=== PATIENT | female | born 2000 | race Caucasian/White ===

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

== ENCOUNTER → 2022-08-05 | Outpatient (CLI) | payer OTHER, SELFPAY ==
[2022-08-05 12:08] LABS: Absolute Neutrophil Count 2.2 X10^3/uL (2.0-7.7); Basophil# 0.06 X10^3/uL; Basophil% 1.1 % (0-1); Eosinophil# 0.11 X10^3/uL; Eosinophils% 2.1 % (0-5); Hematocrit 41.5 % (37-47); Hemoglobin 13.9 g/dL (12.0-15.0); Lymphocyte % 47.3 % (19-41); Mean Corp Hgb Conc 33.5 g/dL (32-36); Mean Corpuscular Hgb 30.4 pg (27.0-32.0); Mean Corpuscular Volume 90.8 fL (81-99); Monocyte# 0.39 X10^3/uL; Monocyte% 7.4 % (0-10); NRBC Flagged by Analyzer 0 % (0-5); Neutrophil # 2.22 X10^3/uL (2.7-7.7); Neutrophil % 41.9 % (47-70); Platelet Count 347 K/mm3 (150-450); RBC Distribution Width CV 12.8 % (11.6-14.6); RBC Distribution Width SD 42.4 fl (35.1-43.9); Red Blood Count 4.57 M/mm3 (4.2-5.4); White Blood Count 5.3 K/mm3 (4.4-11.0)
[2022-08-05 12:22] LABS: Erythrocyte Sedimentation Rate 2 mm/hr (0-30)
[2022-08-05 12:57] LABS: ALB/GLOB Ratio 0.9 RATIO (0.9-2.4); AST(SGOT) 14 U/L (15-37); Alanine Aminotransfer ALT/SGPT 14 U/L (13-56); Albumin, Serum 3.1 g/dL (3.2-5.0); Alkaline Phosphatase 62 U/L (45-117); Anion Gap 7 (5-15); BUN 7 mg/dL (7-18); BUN/Creat Ratio 9.4 RATIO (10-20); Calcium,Total 8.9 mg/dL (8.5-10.1); Chloride 108 mmol/L (98-107); Cholesterol 180 mg/dL (200); Creatinine, Serum 0.75 mg/dL (0.55-1.02); EST Glomerular Filtration Rate 105 mL/min (>60); Est Glom Filt Rate - Afr Amer 127 mL/min (>60); Globulin 3.5 g/dL (2.2-4.2); Glucose 83 mg/dL (74-106); High Density Lipoprotein 100 mg/dL; Iron 120 ug/dL (50-170); Protein, Total 6.6 g/dL (6.4-8.2); Sodium Level 139 mmol/L (136-145); Thyroid Stim Hormone (TSH) 1.57 uIU/mL (0.358-3.74); Triglycerides 74 mg/dL; Very Low Density Lipoprotein 15 mg/dL (5-40)
[2022-08-10 13:07] LABS: Beef <0.10 kU/L (Class 0); Corn <0.10 kU/L (Class 0); Egg, Whole <0.10 kU/L (Class 0); Milk (Cow) <0.10 kU/L (Class 0); Peanut <0.10 kU/L (Class 0); Pork <0.10 kU/L (Class 0); Soybean <0.10 kU/L (Class 0); Wheat <0.10 kU/L (Class 0)
[2022-08-12 19:51] LABS: Chocolate <0.10 kU/L (Class 0)
== END | disposition home or self-care (01) ==
PROVIDERS: PCP Family Medicine; Visit Provider Family Medicine
DX: Z00.00 Encounter for general adult medical examination without abnormal findings (principal); R10.9 Unspecified abdominal pain
CPT/HCPCS: 36415; 80053; 80061; 82746; 83540; 84443; 85025; 85652; 86003; 86005

== ENCOUNTER → 2022-08-08 | Outpatient (CLI) | payer OTHER, SELFPAY ==
--- NOTE | 2022-08-08 07:12 | US_ITS ---
EXAM: US ABDOMEN LIMITED, RIGHT UPPER QUADRANT CLINICAL INDICATION: Abd pain TECHNIQUE: Real-time ultrasound of the right upper quadrant with image documentation. This report was created using [id number] report generation technology. COMPARISON: None. FINDINGS: LIVER: Normal. There is normal echotexture. No focal hepatic lesion. No intrahepatic biliary ductal dilation. GALLBLADDER: Normal. No shadowing gallstone. No gallbladder wall thickening is demonstrated. No pericholecystic fluid. Negative sonographic Farfan''s sign. COMMON BILE DUCT: Unremarkable as visualized. The proximal common bile duct is within normal limits for the patient''s age. PANCREAS: Unremarkable as visualized. No focal abnormality is demonstrated in the pancreas. No pancreatic ductal dilatation. RIGHT KIDNEY: Normal. There is no hydronephrosis. No shadowing calculus. No focal lesion or perinephric collection is demonstrated. US/Abdomen Limited IMPRESSION: Normal right upper quadrant ultrasound. Electronically Signed: Prudencio Baez MD at 12:30 EST ,
== END | disposition home or self-care (01) ==
LOC: US 07:11
PROVIDERS: PCP Family Medicine; Referring Provider Family Medicine; Visit Provider Family Medicine
DX: R10.9 Unspecified abdominal pain (principal)
CPT/HCPCS: 76705

== ENCOUNTER 2023-04-15 20:19 | Emergency (ER) | payer OTHER, SELFPAY ==
[2023-04-15 20:20] VITALS: BP 127/87; PULSE 82; RESP 16; TEMP 36.6; O2SAT 97; BMI 29.3
--- NOTE | 2023-04-15 21:22 | CT_ITS ---
STUDY: CT ABDOMEN AND PELVIS WITH CONTRAST REASON FOR EXAM: Female, 22 years old. abd pain, vomiting, diarrhea RADIATION DOSAGE (If Supplied By Facility): CTDIvol = ( 12.88 ) mGy, DLP = ( 796.03 ) mGycm TECHNIQUE: Transaxial images were obtained from the dome of the diaphragm to the symphysis pubis without oral contrast. IV 100mL Isovue-370 was administered. Sagittal and coronal images were reconstructed. Individualized dose optimization techniques were used for this CT. COMPARISON: None. FINDINGS: The visualized lung bases are unremarkable. The visualized portions of the heart are within normal limits. Normal liver. Normal gallbladder and extrahepatic biliary system. Normal spleen. Normal pancreas. Normal bilateral adrenal glands. Normal right kidney. Normal left kidney. Normal visualized stomach. Normal small intestine. Normal colon. The appendix is visualized and appears normal. Normal abdominal aorta. Normal inferior vena cava. Normal retroperitoneum. Normal urinary bladder. Normal abdominal wall. Normal osseous structures. CT/Abdomen/Pelvis W IV Cont ONLY IMPRESSION: Normal enhanced CT of the abdomen and pelvis. Electronically Signed: Lucian Estevez MD at 23:38 EDT ,
[2023-04-15] MEDS: 0.9% Normal Saline (1000mL) 1,000 ML 1000 ML IV (21:53)
[2023-04-15] MEDS: proMETHazine 25 MG/ML Syringe 12.5 MG IM (22:01)
[2023-04-15] MEDS: Pantoprazole Sodium 40 MG in 0.9% Normal Saline (100mL MB+) 100 ML 330 MG IV (22:01)
[2023-04-15 22:06] LABS: Absolute Lymphocyte Count 2.42 X10^3/uL (0.83-4.51); Absolute Neutrophil Count 2.6 X10^3/uL (2.0-7.7); Basophil# 0.04 X10^3/uL; Basophil% 0.7 % (0-1); Eosinophil# 0.09 X10^3/uL; Eosinophils% 1.5 % (0-5); Hematocrit 41.7 % (37-47); Lymphocyte # 2.42 X10^3/ul (0.83-4.51); Lymphocyte % 41.2 % (19-41); Mean Corp Hgb Conc 33.6 g/dL (32-36); Mean Corpuscular Hgb 29.5 pg (27.0-32.0); Mean Platelet Vol. 9.8 fl (6.2-12.0); Monocyte# 0.76 X10^3/uL; Monocyte% 12.9 % (0-10); NRBC Flagged by Analyzer 0 % (0-5); Neutrophil # 2.56 X10^3/uL (2.7-7.7); Neutrophil % 43.5 % (47-70); Platelet Count 328 K/mm3 (150-450); RBC Distribution Width CV 11.9 % (11.6-14.6); Red Blood Count 4.74 M/mm3 (4.2-5.4); White Blood Count 5.9 K/mm3 (4.4-11.0)
[2023-04-15 22:19] LABS: Internal QC Validated? YES +Cl - CLEAR BKGD; Pregnancy, Serum, hCG Quali. NEGATIVE Negative
[2023-04-15 22:26] LABS: AST(SGOT) 18 U/L (15-37); Alanine Aminotransfer ALT/SGPT 46 U/L (13-56); Albumin, Serum 3.3 g/dL (3.2-5.0); Alkaline Phosphatase 67 U/L (45-117); Anion Gap 5 (5-15); BUN 5 mg/dL (7-18); BUN/Creat Ratio 6.8 RATIO (10-20); Bilirubin, Direct 0.14 mg/dL (0.00-0.30); Chloride 107 mmol/L (98-107); Creatinine, Serum 0.73 mg/dL (0.55-1.02); EST Glomerular Filtration Rate 107 mL/min (>60); Est Glom Filt Rate - Afr Amer 130 mL/min (>60); Estimated Creatinine Clearance 119.54 ml/min; Globulin 3.4 g/dL (2.2-4.2); Glucose 89 mg/dL (74-106); Lipase 37 U/L (13-75); Potassium 3.5 mmol/L (3.5-5.1); Protein, Total 6.7 g/dL (6.4-8.2); Sodium Level 139 mmol/L (136-145)
[2023-04-15 22:29] LABS: Mucous, Urine 0 SEEN /hpf (<or=2+); Red Blood Cells-Urine 0 SEEN /hpf (0-5); Squamous Epithelial Cells - UA 0 SEEN /hpf (5-10); White Blood Cells 0 SEEN /hpf (0-5)
--- NOTE | 2023-04-15 22:29 | EDS_ITS ---
HPI History of Present Illness Chief Complaint: Nausea/Vomiting/Diarrhea Informant: patient and family Onset/Context/Timing Onset: Days (5 days) Context: Gradual Onset Narrative Narrative: Patient presents with 5-day history of nausea, vomiting, and diarrhea. She complains of some diffuse abdominal cramping, but does have intermittent sharper pain in the lower abdomen. No fever has been noted. Patient has been taking Zofran and omeprazole at home without improvement. [facility] Medical History Asthma Back pain Dysmenorrhea Dysmenorrhea Facet syndrome, lumbar HNP (herniated nucleus pulposus), lumbar Influenza A Low iron Wears contact lenses Home Medications albuterol sulfate 90 mcg/actuation aerosol inhaler 1 - 2 puff inhalation Q4H PRN PRN Wheezing ##1 12/22/14 [Rx Last Taken Unknown] montelukast 10 mg tablet 10 mg PO DAILY 12/22/14 [History Last Taken 12/21/14] fluticasone propionate 50 mcg/actuation nasal spray,suspension (Flonase Allergy Relief) 1 spray intranasal DAILY 02/15/20 [History Last Taken Unknown] ferrous sulfate 325 mg (65 mg iron) tablet (iron) 325 mg PO DAILY 04/18/21 [History Last Taken Unknown] drospirenone 3 mg-ethinyl estradiol 0.03 mg tablet (Ocella) 1 tab PO DAILY active pills only for continuous cycling #84 tabs 06/04/22 [Rx Last Taken Unknown] omeprazole 40 mg capsule,delayed release 40 mg PO DAILY PRN 04/15/23 [History Last Taken Unknown] pantoprazole 20 mg tablet,delayed release (Protonix) 40 mg (2 x 20 mg) PO DAILY #14 tabs 04/15/23 [Rx Last Taken Unknown] promethazine 25 mg tablet 25 mg PO TID PRN nausea and vomiting #14 tabs 04/15/23 [Rx Last Taken Unknown] Allergy/AdvReac Type Severity Reaction Status Date / Time amoxicillin [From Augmentin] AdvReac Mild Vomiting Verified 04/15/23 20:20 clavulanic acid AdvReac Mild Vomiting Verified 04/15/23 20:20 [From Augmentin] Family History Grandmother Cancer Aunt Cancer Thyroid Surgical History [place] teeth extracted Social History current occupational status: student current occupation: [employer] Smoking Status: Never smoker alcohol intake: never substance use type: does not use frequency: 3-4 times per week ROS ROS ED Constitutional Constitutional ED: Denies chills or fever(s) Eyes Eyes: Denies discharge from eye(s) ENT ENT ED: Denies discharge from eye(s), rhinorrhea or sore throat Cardiovascular Cardiovascular: Denies chest pain or palpitations Respiratory/Chest Respiratory/Chest: Denies cough or dyspnea Gastrointestinal Gastrointestinal: Reports abdominal pain, diarrhea, nausea and vomiting Genitourinary Genitourinary ED: Denies dysuria Musculoskeletal Musculoskeletal: Denies back pain or extremity pain Integumentary Denies Abrasions or rash Neurologic Neurologic: Denies headache(s) or weakness Allergic/Immunologic Allergic/Immunologic ED: Denies lip swelling or urticaria EXAM Physical Exam Const Vital Signs: 04/15/23 20:20 Temperature 97.8 F Temperature Source Temporal Pulse Rate 82 Respiratory Rate 16 Blood Pressure 127/87 H Blood Pressure Mean 100 Pulse Ox 97 Positive well nourished and well developed General Appearance ED: well developed HEENT Reports normocephalic and head/scalp atraumatic Eyes PERRL and EOMs intact bilaterally Neck supple Chest Wall inspection of chest normal and palpation of chest normal Resp normal respiratory effort and clear to auscultation bilaterally Cardio regular rate and regular rhythm GI GI Narrative: Abdomen soft with hypoactive but present bowel sounds. Mild tenderness in the inferior aspect of the left lower quadrant. No guarding or rebound. Palpation: soft Extremity normal to inspection Neuro oriented x3 and no sensory deficits noted Sensorium / Orientation: alert Motor Exam: strength 5/5 throughout Psych mental status grossly normal Skin no rashes or lesions noted MDM MDM MDM Narrative Medical decision making narrative: IV line established. Patient given Protonix and Phenergan. Labwork obtained to evaluate for leukocytosis, anemia, and electrolyte derangement. CT scan of the abdomen pelvis with IV contrast obtained to evaluate for any bowel abnormalities, colitis. Lab Data Attestation: I reviewed the patient's lab results. Labs: Laboratory Results - last 24 hr 04/15/23 21:50 WBC 5.9 RBC 4.74 Hgb 14.0 Hct 41.7 MCV 88.0 MCH 29.5 MCHC 33.6 RDW Std Deviation 39.0 RDW Coeff of Mandy 11.9 Plt Count 328 MPV 9.8 Immature Gran % (Auto) 0.200 Neut % (Auto) 43.5 L Lymph % (Auto) 41.2 H [place] % (Auto) 12.9 H Eos % (Auto) 1.5 Baso % (Auto) 0.7 Absolute Neuts (auto) 2.6 Absolute Lymphs (auto) 2.42 Nucleated RBC % 0 Sodium 139 Potassium 3.5 Chloride 107 Carbon Dioxide 27.0 Anion Gap 5 BUN 5 L Creatinine 0.73 Estim Creat Clear Calc 119.54 Est GFR (MDRD) Af Amer 130 Est GFR (MDRD) Non-Af 107 BUN/Creatinine Ratio 6.8 L Glucose 89 Calcium 9.0 Total Bilirubin 0.40 Direct Bilirubin 0.14 AST 18 ALT 46 Alkaline Phosphatase 67 Total Protein 6.7 Albumin 3.3 Globulin 3.4 Lipase 37 Serum , Qual NEGATIVE Urine Color Yellow Urine Clarity Clear Urine pH 7.0 Ur Specific [place] 1.010 Urine Protein Negative Urine Glucose (UA) Normal Urine Ketones Negative Urine Occult Blood Negative Urine Nitrite Negative Urine Bilirubin Negative Urine Urobilinogen Normal Ur Leukocyte Esterase Negative Urine RBC 0 SEEN Urine WBC 0 SEEN Ur Squamous Epith Cells 0 SEEN Urine Bacteria 1+ Urine Mucus 0 SEEN Radiography Diagnostic Testing: Clinical Impression(s) from Imaging Studies Abdomen/Pelvis CT 04/15/23 21:22 IMPRESSION: Normal enhanced CT of the abdomen and pelvis. Electronically Signed: Lucian Estevez MD at 23:38 EDT , Treatment and Re-Evaluation :: CBC was normal white count of 5.9 with a hemoglobin of 14.0. Chemistry studies are unremarkable with normal renal function. Glucose is 89. test is negative. LFTs are normal. Lipase is normal at 37. CT scan of the abdomen pelvis with IV contrast per radiology reveals no acute findings. On repeat evaluation patient does feel improved after Protonix and Phenergan. I will write her prescription for these. She will continue supportive care. Discharge Plan Triage Chief Complaint: Nausea/Vomiting/Diarrhea ED Provider: Betsy Durand Dx/Rx/DC Orders Clinical Impression: Viral gastroenteritis Instructions: ED Gastroenteritis, Viral (Adult) Prescriptions: New promethazine 25 mg tablet 25 mg PO TID PRN (Reason: nausea and vomiting) Qty: 14 0RF pantoprazole [Protonix] 20 mg tablet,delayed release (DR/EC) 40 mg PO DAILY Qty: 14 0RF No Action fluticasone propionate [Flonase Allergy Relief] 50 mcg/actuation spray,suspension 1 spray INTRANASAL DAILY Hold Instructions: not taking Rx Instructions: administer into each nostril ferrous sulfate [iron] 325 mg (65 mg iron) tablet 325 mg PO DAILY drospirenone-ethinyl estradiol [Ocella] 3-0.03 mg tablet 1 tab PO DAILY Qty: 84 4RF montelukast 10 MG tablet 10 mg PO DAILY albuterol sulfate 1 INHALER inhaler 1 - 2 puff inhalation Q4H PRN PRN (Reason: Wheezing) Qty: 1 0RF omeprazole 40 mg capsule,delayed release(DR/EC) 40 mg PO DAILY PRN Primary Care Provider: Bimal Reddy Referrals: Bimal Reddy MD [Primary Care Provider] - 1 Week if not improving Disposition Disposition: Home, Self Care
[2023-04-15 22:30] LABS: Color, Urine Yellow (Yellow); Glucose, Dipstick Normal (Normal); Ketone-Dipstick Negative (Negative); Leukocyte Esterase-Dipstick Negative /ul (Negative); Nitrite-Dipstick Negative (Negative); Occult Blood-Urine Negative /ul (Negative); Protein-Dipstick Negative (Negative); Urine Bilirubin Dipstick Negative (Negative); Urine Clarity Clear (Clear); Urine Urobilinogen Normal (Normal)
[2023-04-15 22:38] LABS: Bacteria 1+ /hpf (None Seen)
[2023-04-15] MEDS: 0.9% Normal Saline (1000mL) 1,000 ML 150 ML IV (23:26)
[2023-04-16 00:11] VITALS: BP 120/81; PULSE 78; RESP 16; O2SAT 98
== END 2023-04-16 00:16 | disposition home or self-care (01) ==
PROVIDERS: Emergency Provider Emergency Medicine; PCP Family Medicine; Visit Provider Emergency Medicine
DX: A08.4 Viral intestinal infection, unspecified (principal); Z23 Encounter for immunization
CPT/HCPCS: 74177; 80048; 80076; 81001; 83690; 84703; 85025; 90471; 96365; 96372; 99283; J7030; Q9967; A4216

== ENCOUNTER → 2024-02-12 | Outpatient (CLI) | payer OTHER, SELFPAY ==
[2024-02-17 11:59] LABS: Chlamydia By Nucleic Acid AMP Negative (Negative); Gonococcus By Nucleic Acid AMP Negative (Negative)
[2024-02-17 12:19] LABS: HPV Reflexed? NOT INDICATED
== END | disposition home or self-care (01) ==
PROVIDERS: PCP Family Medicine; Referring Provider Advanced Practice Midwife; Visit Provider Advanced Practice Midwife
DX: O99.210 Obesity complicating pregnancy, unspecified trimester (principal); Z3A.00 Weeks of gestation of pregnancy not specified; Z12.4 Encounter for screening for malignant neoplasm of cervix
CPT/HCPCS: 87086; 87088; 87491; 87591; 88175; G0145

== ENCOUNTER → 2024-03-09 | Outpatient (CLI) | payer OTHER, SELFPAY ==
[2024-03-09 14:51] LABS: Absolute Lymphocyte Count 2.38 X10^3/uL (0.83-4.51); Absolute Neutrophil Count 4.9 X10^3/uL (2.0-7.7); Basophil# 0.05 X10^3/uL; Basophil% 0.6 % (0-1); Eosinophil# 0.12 X10^3/uL; Eosinophils% 1.5 % (0-5); Hematocrit 37.8 % (37-47); Hemoglobin 12.6 g/dL (12.0-15.0); Lymphocyte # 2.38 X10^3/ul (0.83-4.51); Lymphocyte % 30.2 % (19-41); Mean Corp Hgb Conc 33.3 g/dL (32-36); Mean Corpuscular Hgb 30.1 pg (27.0-32.0); Mean Corpuscular Volume 90.4 fL (81-99); Monocyte# 0.46 X10^3/uL; Monocyte% 5.8 % (0-10); NRBC Flagged by Analyzer 0 % (0-5); Neutrophil # 4.85 X10^3/uL (2.7-7.7); Neutrophil % 61.5 % (47-70); Platelet Count 307 K/mm3 (150-450); RBC Distribution Width CV 12.9 % (11.6-14.6); RBC Distribution Width SD 42.5 fl (35.1-43.9); Red Blood Count 4.18 M/mm3 (4.2-5.4); White Blood Count 7.9 K/mm3 (4.4-11.0)
[2024-03-09 15:12] LABS: Hemoglobin A1c 4.7 % (3.8-5.6)
[2024-03-09 16:03] LABS: HIV - WCH Non-Reactive (Nonreactive); Hepatitis B Surface Antigen Non-Reactive (Nonreactive); Hepatitis C Antibody Non-Reactive (Nonreactive); Rubella IgG Reactive (Nonreactive); Syphilis Antibodies Non-reactive
== END | disposition home or self-care (01) ==
LOC: LAB 14:01
PROVIDERS: PCP Family Medicine; Referring Provider Advanced Practice Midwife; Visit Provider Advanced Practice Midwife
DX: O09.90 Supervision of high risk pregnancy, unspecified, unspecified trimester (principal); Z3A.00 Weeks of gestation of pregnancy not specified
CPT/HCPCS: 36415; 83036; 85025; 86703; 86762; 86780; 86803; 86850; 86900; 86901; 87340

== ENCOUNTER → 2024-06-18 | Outpatient (CLI) | payer OTHER, SELFPAY ==
[2024-06-18 16:28] LABS: Absolute Lymphocyte Count 2.01 X10^3/uL (0.83-4.51); Absolute Neutrophil Count 6.4 X10^3/uL (2.0-7.7); Basophil# 0.05 X10^3/uL; Basophil% 0.5 % (0-1); Eosinophil# 0.11 X10^3/uL; Eosinophils% 1.2 % (0-5); Hematocrit 36.3 % (37-47); Hemoglobin 12.1 g/dL (12.0-15.0); Lymphocyte # 2.01 X10^3/ul (0.83-4.51); Lymphocyte % 21.8 % (19-41); Mean Corp Hgb Conc 33.3 g/dL (32-36); Mean Corpuscular Hgb 30.9 pg (27.0-32.0); Mean Corpuscular Volume 92.8 fL (81-99); Mean Platelet Vol. 10.6 fl (6.2-12.0); Monocyte# 0.61 X10^3/uL; Monocyte% 6.6 % (0-10); NRBC Flagged by Analyzer 0 % (0-5); Neutrophil # 6.41 X10^3/uL (2.7-7.7); Neutrophil % 69.5 % (47-70); Platelet Count 291 K/mm3 (150-450); RBC Distribution Width SD 43.6 fl (35.1-43.9); Red Blood Count 3.91 M/mm3 (4.2-5.4); White Blood Count 9.2 K/mm3 (4.4-11.0)
[2024-06-18 16:39] LABS: Glucose Challenge Gest 1H 50g 114 mg/dL (70-140)
[2024-06-21 19:23] LABS: HIV - WCH Non-Reactive (Nonreactive); Syphilis Antibodies Non-reactive
== END | disposition home or self-care (01) ==
LOC: BWCLAB 14:12
PROVIDERS: PCP Family Medicine; Referring Provider Advanced Practice Midwife; Visit Provider Advanced Practice Midwife
DX: O09.92 Supervision of high risk pregnancy, unspecified, second trimester (principal); Z3A.00 Weeks of gestation of pregnancy not specified; Z13.1 Encounter for screening for diabetes mellitus
CPT/HCPCS: 36415; 82950; 85025; 86703; 86780

== ENCOUNTER 2024-07-22 05:22 | Outpatient (CLI) | payer OTHER, SELFPAY ==
[2024-07-22 05:46] VITALS: BP 107/58; PULSE 85; RESP 18; TEMP 36.6; O2SAT 100
[2024-07-22 05:49] VITALS: BMI 34.4
[2024-07-22] MEDS: Dextrose 5%-Lactated Ringers 1,000 ML 999 ML IV (07:26)
[2024-07-22] MEDS: Ondansetron 4 MG/2 ML Vial IV (07:27)
[2024-07-22 07:31] VITALS: BP 99/57; PULSE 71; RESP 16; TEMP 36.5
[2024-07-22] MEDS: 0.9% Saline Lock 10 ML Syringe IV (08:40)
--- NOTE | 2024-07-22 09:19 | OB.TRI.PN_ITS ---
Progress Notes Date of Service: 07/22/24 Progress Note: Patient presents for triage evaluation secondary to diarrhea, dec fm FHT: 140 Moderate variability reactive no decelerations category I tracing [place]: no ergular Contractions Assessment and plan: diarrha 33 week tolerating po now will get stool culture as OP Reactive NST, reassuring maternal and status patient discharged to home to follow-up as bindu. See problem list details for additional plan information. Charges/Coding Procedures Urinary/Genital [id number]: [id number] non-stress test Interp Assessment & Plan (1) Decreased movements in third trimester: (2) Diarrhea: (3) : QUALIFIERS: Weeks of gestation: 30 weeks Qualified Code(s): Z3A.30 - 30 weeks gestation of COMMENT: LR NIPT, carrier and afp declined. nl anatomy (4) Supervision of high-risk : QUALIFIERS: Trimester: second trimester Qualified Code(s): O09.92 - Supervision of high risk , unspecified, second trimester COMMENT: HADLEY, , MARVA 09/20/24, boy name secret Jatinder
== END 2024-07-22 10:15 | disposition home or self-care (01) ==
LOC: WPOUT 05:26 → WP 05:26
PROVIDERS: PCP Family Medicine; Referring Provider Obstetrics & Gynecology; Visit Provider Obstetrics & Gynecology
DX: O99.891 Other specified diseases and conditions complicating pregnancy (principal); R19.7 Diarrhea, unspecified; O09.93 Supervision of high risk pregnancy, unspecified, third trimester; O36.8130 Decreased fetal movements, third trimester, not applicable or unspecified; Z3A.31 31 weeks gestation of pregnancy
CPT/HCPCS: 96374; 96361; 36415; 59025; 59050; 99221; A4216; G0378; J2405

== ENCOUNTER → 2024-08-27 | Outpatient (CLI) | payer OTHER, SELFPAY | END | disposition home or self-care (01) | LOC: LABSPEC 16:30 | PROVIDERS: PCP Family Medicine; Referring Provider Advanced Practice Midwife; Visit Provider Advanced Practice Midwife | DX: O09.92 Supervision of high risk pregnancy, unspecified, second trimester (principal); Z3A.00 Weeks of gestation of pregnancy not specified | CPT/HCPCS: 87081 ==

== ENCOUNTER → 2024-09-10 | Outpatient (CLI) | payer OTHER, SELFPAY ==
--- NOTE | 2024-09-10 17:46 | US_ITS ---
PROCEDURE: OB LIMITED WITH BIOMETRICS REASON FOR EXAM: growth. COMPARISON: None. FINDINGS Number: 1 Position: Vertex Placental Position: Placental Abnormalities: None. DIMENSIONS: Biparietal Diameter: 9.4 cm: 38 weeks and 1 day: 66 percentile/ Head Circumference: 33.6 cm: 38 weeks and 4 days: 33rd percentile/ Abdominal Circumference: Abdominal circumference: 32.1 cm: 36 weeks and 0 days: 9 percentile/ Femur Length: 7 cm: 35 weeks and 4 days: 3rd percentile/ ESTIMATED WEIGHT: 2929 g plus/-439 g. ESTIMATED WEIGHT PERCENTILE (24+ weeks): 17 percentile ESTIMATED GESTATIONAL AGE: Baseline: 38 weeks and 4 days By Ultrasound: 37 weeks and 1 day ESTIMATED DATE OF DELIVERY: Baseline: September 20, 2024 By Ultrasound: September 30, 2024 BIOPHYSICAL ASSESSMENT: Amniotic Fluid Volume: Subjectively normal. Amniotic Fluid Index: 10.6 (8-24 cm normal range) Cardiac Motion: 135 beats per minutes (average) Trunk and Limb Motion: Present. MATERNAL ANATOMY: Adnexa: Neither maternal ovary is successfully identified. US/OB Limited With Biometrics IMPRESSION: Single live intrauterine gestation with a mean gestational age of 37 weeks and 1 day. Reading Location: [place] [id number]
== END | disposition home or self-care (01) ==
LOC: US 17:45
PROVIDERS: PCP Family Medicine; Referring Provider Obstetrics & Gynecology; Visit Provider Obstetrics & Gynecology
DX: O99.212 Obesity complicating pregnancy, second trimester (principal); Z3A.00 Weeks of gestation of pregnancy not specified
CPT/HCPCS: 76816

== ENCOUNTER 2024-09-13 19:30 | Inpatient (IN) | payer OTHER, SELFPAY ==
--- NOTE | 2024-09-13 20:18 | HP.PCM.OB_ITS ---
HPI - General General Date of Admission: 09/13/24 Date of Service: 09/13/24 HPI Narrative ARIANA SINGH, is a 23 F 39.0 weeks who presents to unit for IOL for IUGR by US. AC 9th% over all 17%. plan cytotec. Maternal Data Information MARVA Calculator Estimated Delivery Date Method Current WG Current Estimate 09/20/24 LMP (Certain) 39w 0d Other Estimates 09/25/24 Ultrasound #1 38w 2d Final MARVA: 09/20/24 Final MARVA Source: US >20 weeks Gestational age: 39.0 PFSH PFS Medical History Dysmenorrhea Seasonal allergies Wears contact lenses Low iron Back pain Facet syndrome, lumbar HNP (herniated nucleus pulposus), lumbar Dysmenorrhea Asthma Home Medications ?Medication ?Instructions ?Recorded ?Last Taken ?Type loratadine 10 mg tablet (Claritin) 10 mg PO PRN Unknown History montelukast 10 mg tablet 10 mg PO QHS 07/22/24 21:00 History (Singulair) vit no.95-ferrous 1 tab PO DAILY 07/22/24 21:00 History fumarate 28 mg-folic acid 800 mcg tablet () Allergy/AdvReac Type Severity Reaction Status Date / Time amoxicillin (From Augmentin) AdvReac Mild Vomiting Verified 09/07/24 15:20 clavulanic acid (From AdvReac Mild Vomiting Verified 09/07/24 15:20 Augmentin) Family History Grandmother Cancer Aunt Cancer Thyroid Brother Congenital heart defect Hole in heart resolved w/o intervention Surgical History [place] teeth extracted Social History adopted: No household members: spouse and family current occupational status: employed current occupation: [employer] pets and animals: Yes (Avoid litterbox) pets and animals: cat(s) and dog(s) history of recent travel: Yes ([place]) out of state: Yes out of country: Yes sexually active: Yes Smoking Status: Never smoker alcohol intake: never substance use type: does not use well-balanced diet: daily or most days caffeine: No eating out: 1-3 times/week during the past year weight has: remained stable what type of physical activity do you participate in: walking frequency: 1-2 times per week duration: 15-30 minutes/day kimberly/latter day: Gnosticism seatbelt use: always do you feel safe at home: Yes additional social history: Jatinder History 1 Elective abortions Hx Para 0 Spontaneous abortions Hx # Term Pregnancies Ectopic pregnancies Hx # Pregnancies Multiple births # of living children Visit Details Expected Delivery Route/Plan Labor Preferences- CB/BF classes: encouraged labor support person: Jatinder labor intervention preferences: [] pain management options preferred: [] cut cord/dad catch: yes : yes PP control planned: discussed discussed possible routes of delivery and associated risks: [] special requests: [] Plans Covid status: [] Flu vaccine: received at work Tdap vaccine: declined Rhogam: NA LARC form signed: yes movement and labor precautions reviewed. Problem list reviewed and updated with the most current plan of care details and appropriate orders placed. Relevant counseling for the gestational age provided. Continue routine care and follow up unless otherwise noted in visit notes/problem list details OB Flowsheet Initial Weight: Not Recorded Date -?-?-?-?-?-?-?-?-?-?-?-?- EGA Weight BP Urine Prot -?-?-?-?-?-?-?-?-?-?-?-?- Glucose FHR FuHt Pres Dilation -?-?-?-?-?-?-?-?-?-?-?-?- Effaced St Visit Note 02/12/24 -?-?-?-?-?-?-?-?-?-?-?-?- 8w 3d 195 lb 114/71 -?-?-?-?-?-?-?-?-?-?-?-?- 159 -?-?-?-?-?-?-?-?-?-?-?-?- KW- CRL 1.20 cm. CRL reports OOR. Rescan in 2 weeks. Accepts NIPT 02/26/24 -?-?-?-?-?-?-?-?-?-?-?-?- 10w 3d 195 lb 111/77 -?-?-?-?-?-?-?-?-?-?-?-?- 157 -?-?-?-?-?-?-?-?-?-?-?-?- KW-CRL 2.90cm, c ons with 9.5 week. doing well. Yolandaan sent 03/23/24 -?-?-?-?-?-?-?-?-?-?-?-?- 14w 1d 198 lb 6 oz 115/75 Nega tive -?-?-?-?-?-?-?-?-?-?-?-?- Negative 145 -?-?-?-?-?-?-?-?-?-?-?-?- JV- still having nausea. patient prefers [facility] ultrasound for anatomy. discussed will cost out of pocket due to having merritain ins. 04/15/24 -?-?-?-?-?-?-?-?-?-?-?-?- 17w 3d 201 lb 94/65 Negative -?-?-?-?-?-?-?-?-?-?-?-?- Negative 139 -?-?-?-?-?-?-?-?-?-?-?-?- MH-work in for h dean. Only has it when has to get up early for work and will last half of 12 hr shift. Nausea no longer problematic. Just has difficulty concentrating. Caffeine and tylenol not helpful. Note off work rest of today, phenergan Rx and discussed take night prior to working. Good Fm. No VB 04/23/24 -?-?-?-?-?-?-?-?-?-?-?-?- 18w 4d 203 lb 6 oz 100/68 Nega tive -?-?-?-?-?-?-?-?-?-?-?-?- Negative 150 -?-?-?-?-?-?-?-?-?-?-?-?- SM- no vb lof go od fm no regular ctx discussed allergies and MAE 05/20/24 -?-?-?-?-?-?-?-?-?-?-?-?- 22w 3d 210 lb 2 oz 96/62 Nega tive -?-?-?-?-?-?-?-?-?-?-?-?- Negative 148 -?-?-?-?-?-?-?-?-?-?-?-?- MH-No Vb, LOF. G ood FM. Denies concerns 06/18/24 -?-?-?-?-?-?-?-?-?-?-?-?- 26w 4d 214 lb 113/76 Negative -?-?-?-?-?-?-?-?-?-?-?-?- Negative 150 26 -?-?-?--?-?-?-?-?-?-?-?-?- KW- no vb.lof.ct x. good fm. had labs today. 07/01/24 -?-?-?-?-?-?-?-?-?-?-?-?- 28w 3d 220 lb 109/69 Negative -?-?-?-?-?-?-?-?-?-?-?-?- Negative 150 28 -?-?-?-?-?-?-?-?-?-?-?-?- SM- no vb lof go od fm no reuglar ctx 07/16/24 -?-?-?-?-?-?-?-?-?-?-?-?- 30w 4d 222 lb 2 oz 109/70 Nega tive -?-?-?-?-?-?-?-?-?-?-?-?- Negative 145 30 -?-?-?-?-?-?-?-?-?-?-?-?- SM- no vb lof go od fm nro egualr ctx 07/26/24 -?--?-?-?-?-?-?-?-?-?-?-?- 32w 0d 220 lb 2 oz 98/66 Nega tive -?-?-?-?-?-?-?-?-?-?-?-?- Negative 150 31 -?-?-?-?-?-?-?-?-?-?-?-?- KW- no vb/lof/ct x. good fm. restless legs-magnesium recommended. 08/09/24 -?-?-?-?-?-?-?-?-?-?-?-?- 34w 0d 220 lb 8 oz 101/68 Trac e -?-?-?-?-?-?-?-?-?-?-?-?- Negative 135 33 -?-?-?-?-?-?-?-?-?-?-?-?- KW- no vb/lof/ct x. good fm. no concerns 08/27/24 -?-?-?-?-?-?-?-?-?-?-?-?- 36w 4d 223 lb 8 oz 117/78 Nega tive -?-?-?-?-?-?-?-?-?-?-?-?- Negative 135 35 Cephalic 1 -?-?-?-?-?-?-?-?-?-?-?-?- 50 -2 KW- no vb/ lof/ctx. good fm. GBS today. labor precautions. questions answered. 09/02/24 -?-?-?-?-?-?-?-?-?-?-?-?- 37w 3d 225 lb 2 oz 116/77 Nega tive -?-?-?-?-?-?-?-?-?-?-?-?- Negative 135 37 Cephalic 1 -?-?-?-?-?-?-?-?-?-?-?-?- 50 -2 KW- no vb/ lof/ctx. good fm. having more pelvic pressure. 09/07/24 -?-?-?-?-?-?-?-?-?-?-?-?- 38w 1d 226 lb 8 oz 111/70 Nega tive -?-?-?-?-?-?-?-?-?-?-?-?- Negative 140 37 Cephalic 0 .5 -?-?-?-?-?-?-?-?-?-?-?-?- -3 JV- expl ained that my fingers may be shorter than Pham's but unable to pass through the internal os. wants membranes swept next week. will try if able. 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 ok to start maternity leave anytime she wants. She gets 12 weeks regardless of mode of delivery. no lof, vaginal bleeding, or dec fm. NST FHR Rate Baby A Baseline: 135 Variability:: Moderate Accelerations:: 15 x 15 Decelerations:: None NST Reactive:: Yes FHR Category:: Category I Uterine Activity:: none ROS Constitutional Constitutional: Denies change in weight, fatigue, fever(s), headache(s), poor appetite or weakness Eyes Eyes: Denies blurry vision, change in vision, floaters, seeing flashes or spots in vision ENT HEENT: Denies dizziness, headache(s), loss taste/smell or sore throat Cardiovascular Cardiovascular: Denies chest pain, dizziness, dyspnea, irregular heart rhythm, lightheadedness, palpitations or rapid heart rate Respiratory/Chest Respiratory/Chest: Denies change in mental status, chest tightness, cough, dyspnea or breast pain Gastrointestinal Gastrointestinal: Denies anorexia, chewing difficulty, constipation, diarrhea or weight changes Genitourinary Genitourinary: Denies difficulty urinating, dysuria, flank pain, genital pain, urinary frequency or urinary urgency Musculoskeletal Musculoskeletal: Denies back pain, difficulty walking, extremity pain, joint pain, muscle cramps or muscle weakness Integumentary Integumentary: Denies lesions or unusual bruising Neurologic Neurologic: Denies abnormal movements, abnormal speech, dizziness, numbness, seizure-like activity, syncope or weakness Psychiatric Psychiatric: Denies behavioral changes, change in appetite, confusion, depression, homicidal ideation, suicidal ideation or suicidal thoughts Endocrine Endocrinology: Denies excessive sweating, polydipsia or polyuria Hematologic/Lymphatic Hematologic/Lymphatic: Denies anemia Allergic/Immunologic Allergic/Immunologic: Denies itchy eyes, lip swelling, throat swelling, tongue swelling or wheezing Physical Exam Const alert, oriented x3 and no apparent distress General Appearance: cooperative Orientation / Consciousness: awake HEENT normocephalic Neck full ROM Lymph Lymphatic: no lymphadenopathy noted Chest inspection of chest normal Resp normal respiratory effort and normal air movement Effort and Inspection: able to speak in complete sentences and symmetric chest movement GI soft to palpation and non-tender Inspection: gravid Palpation: soft; Negative for tender external exam normal Manual OB Exam: dilated 0.5, effaced 20 and station -3 Back/Spine normal to inspection Extremity normal to inspection and full ROM Skin no rashes or lesions noted Psych mental status grossly normal Appearance: grossly normal Speech: normal speech Labs Labs Labs: Blood Type O POSITIVE Antibody Screen NEGATIVE Hct 36.3 % (37-47) L Hgb 12.1 g/dL (12.0-15.0) Obstetrics Ultrasound Syphilis Total Ab Non-reactive [place] IgG Antibody Reactive (Nonreactive) Hep Bs Antigen Non-Reactive (Nonreactive) Hepatitis C Antibody Non-Reactive (Nonreactive) Chlamydia DNA (ADEN) Negative (Negative) N.gonorrhoeae DNA (ADEN) Negative (Negative) HIV 1&2 Antibody Non-Reactive (Nonreactive) Glucose 1 Hr 50 gm 114 mg/dL (70-140) Assessment & Plan (1) Encounter for induction of labor: COMMENT: IUGR 39.0 week IOL cytotec PLAN: Patient presents IOL, plan management for with cytotec/Helm bulb /pitocin/AROM. Pain management: plans epidural. GBS negative. Management of any complications: see problem list I have reviewed the [facility] and made any clinically relevant updates. Dr Conteh aware of admission, assessment and plan. agrees with above (2) IUGR (intrauterine growth restriction): (3) Obesity affecting : QUALIFIERS: Trimester: second trimester Obesity type affecting : unspecified obesity Qualified Code(s): O99.212 - Obesity complicating , second trimester COMMENT: BMI 31. encouraged healthy weight gain (4) Supervision of high-risk : QUALIFIERS: Trimester: second trimester Qualified Code(s): O09.92 - Supervision of high risk , unspecified, second trimester COMMENT: PRR, , MARVA 09/20/24, boy name secret Jatinder (5) : QUALIFIERS: Weeks of gestation: 38 weeks Qualified Code(s): Z3A.38 - 38 weeks gestation of COMMENT: GBS neg, LR NIPT, carrier and afp declined. nl anatomy Charges/Coding Multi Select Codes Urinary/Genital Urinary/Genital CPT Codes: No Charge
[2024-09-13 20:24] VITALS: BMI 35.4
[2024-09-13 21:00] VITALS: PULSE 75; O2SAT 98
[2024-09-13 21:01] VITALS: BP 113/63; PULSE 69
[2024-09-13 21:04] VITALS: RESP 16; TEMP 36.5
[2024-09-13] MEDS: miSOPROStol 25 MCG TABLET VAGINAL (21:30)
[2024-09-13 21:52] LABS: Absolute Lymphocyte Count 2.84 X10^3/uL (0.83-4.51); Absolute Neutrophil Count 10.2 X10^3/uL (2.0-7.7); Basophil# 0.03 X10^3/uL; Basophil% 0.2 % (0-1); Eosinophil# 0.11 X10^3/uL; Eosinophils% 0.8 % (0-5); Hematocrit 34.6 % (37-47); Hemoglobin 11.6 g/dL (12.0-15.0); Lymphocyte # 2.84 X10^3/ul (0.83-4.51); Lymphocyte % 20.1 % (19-41); Mean Corp Hgb Conc 33.5 g/dL (32-36); Mean Corpuscular Hgb 29.6 pg (27.0-32.0); Mean Corpuscular Volume 88.3 fL (81-99); Mean Platelet Vol. 11.1 fl (6.2-12.0); Monocyte# 0.87 X10^3/uL; Monocyte% 6.1 % (0-10); NRBC Flagged by Analyzer 0 % (0-5); Neutrophil # 10.23 X10^3/uL (2.7-7.7); Neutrophil % 72.2 % (47-70); Platelet Count 290 K/mm3 (150-450); RBC Distribution Width CV 13.2 % (11.6-14.6); RBC Distribution Width SD 42.3 fl (35.1-43.9); Red Blood Count 3.92 M/mm3 (4.2-5.4); White Blood Count 14.2 K/mm3 (4.4-11.0)
[2024-09-13 22:36] LABS: Syphilis Antibodies Nonreactive (Nonreactive)
[2024-09-14] VITALS (94 sets, daily range): BP systolic 84–121; BP diastolic 44–72; PULSE 48–102; RESP 15–18; TEMP 36.1–37.3; O2SAT 87–100
[2024-09-14] MEDS: miSOPROStol 25 MCG TABLET VAGINAL (01:34)
[2024-09-14] MEDS: Lactated Ringers 1,000 ML 999 ML IV ×3 (05:33→09:31)
[2024-09-14] MEDS: Lactated Ringers 1,000 ML 50 ML IV (07:05)
[2024-09-14] MEDS: 0.9% Saline Lock 10 ML Syringe IV ×3 (07:30→08:07)
--- NOTE | 2024-09-14 07:41 | PCM.PN.BLA ---
Progress Note doing well breathing through contractions. current tracing: FHT: Moderate variability reactive no decelerations category I tracing [place]: tachysystole cx 1/40/-2 anterior pineda placed without difficulty. A/P: start pit when contractions slow down epidural prn.
[2024-09-14] MEDS: fentaNYL 100 MCG/2 ML Ampul IV (08:06)
[2024-09-14] MEDS: fentaNYL-bupivacaine (epidural) 100 ML BAG EPIDURAL ×3 (09:55→21:34)
[2024-09-14] MEDS: Oxytocin 15 Units/NS 250ml 15 UNITS/250 ML IV.SOLN 2 UNITS IV (11:53)
[2024-09-14] MEDS: Lactated Ringers 1,000 ML 200 ML IV ×2 (12:40→17:40)
--- NOTE | 2024-09-14 15:36 | PN.OBGYN_ITS ---
Subjective Subjective patient is comfortable with epidural. at 11:45 we ruptured the membranes and placed internal monitors. It is now 15:30 and the nurse states that her cervix is unchanged. current tracing: FHT: minimal to Moderate variability reactive , occasional decelerations that li either variable or late. currently category I tracing [place]: q1-2 min Contractions cx : 4-5/70/-2, posterior to the pubic bone. suspect OP position A/P: continue position changes continue pitocin. i have explained to the patient that this is common after a pineda bulb to be unchanged for several hours. Objective Data Objective Data Vital Signs: Vital Signs Temp Pulse Resp BP Pulse Ox 97.0 F L 75 16 99/55 L 100 09/14/24 13:57 09/14/24 15:09 09/14/24 15:09 09/14/24 15:09 09/14/24 15:09 Weight: 226 lb Body Mass Index (BMI) 35.4 Intake & Output: Intake and Output for Last 24 Hours 09/13/24 09/13/24 09/14/24 00:59 23:59 23:59 Intake Total 3561.90 / 3561.90 Output Total 400 / 400 Balance 3161.90 / 3161.90 Lab / Micro Data 09/13/24 21:14 Labs: Laboratory Results - last 24 hr 09/13/24 21:14: WBC 14.2 H, RBC 3.92 L, Hgb 11.6 L, Hct 34.6 L, MCV 88.3, MCH 29.6, MCHC 33.5, RDW Std Deviation 42.3, RDW Coeff of Mandy 13.2, Plt Count 290, MPV 11.1, Immature Gran % (Auto) 0.600, Neut % (Auto) 72.2 H, Lymph % (Auto) 20.1, [place] % (Auto) 6.1, Eos % (Auto) 0.8, Baso % (Auto) 0.2, Absolute Neuts (auto) 10.2 H, Absolute Lymphs (auto) 2.84, Nucleated RBC % 0, Syphilis Total Ab Nonreactive, Blood Type O POSITIVE, Antibody Screen NEGATIVE
[2024-09-14] MEDS: DiphenhydrAMINE 25 MG Capsule 50 MG PO (16:00)
[2024-09-14] MEDS: Amnioinfusion- 0.9% NS 1,000 ML IV.SOLN. 1000 ML INTRA-UTER (21:01)
[2024-09-15] VITALS (39 sets, daily range): BP systolic 94–149; BP diastolic 51–90; PULSE 60–86; RESP 16–17; TEMP 35.9–36.6; O2SAT 88–100
[2024-09-15] MEDS: Oxytocin 15 Units/NS 250ml 15 UNITS/250 ML IV.SOLN 83 UNITS IV (04:40)
--- NOTE | 2024-09-15 04:49 | OB.VAGDELI_ITS ---
Assessment & Plan (1) Encounter for induction of labor: COMMENT: IUGR 39.0 week IOL cytotec (2) IUGR (intrauterine growth restriction): (3) Decreased movements in third trimester: (4) Diarrhea: (5) Obesity affecting : QUALIFIERS: Trimester: second trimester Obesity type affecting : unspecified obesity Qualified Code(s): O99.212 - Obesity complicating , second trimester COMMENT: BMI 31. encouraged healthy weight gain (6) Supervision of high-risk : QUALIFIERS: Trimester: second trimester Qualified Code(s): O09.92 - Supervision of high risk , unspecified, second trimester COMMENT: PRR, , MARVA 09/20/24, boy name secret Jatinder (7) : QUALIFIERS: Weeks of gestation: 38 weeks Qualified Code(s): Z3A.38 - 38 weeks gestation of COMMENT: GBS neg, LR NIPT, carrier and afp declined. nl anatomy Maternal Data Information MAVRA Calculator Estimated Delivery Date Method Current WG Current Estimate 09/20/24 LMP (Certain) 39w 2d Other Estimates 09/25/24 Ultrasound #1 38w 4d Final MARVA: 09/20/24 Final MARVA Source: LMP Gestational age: 39 weeks 2 days Vaginal Delivery Maternal Presentation Maternal Presentation: Medically Indicated Induction Type of Induction: Pitocin, Helm Bulb, Amniotomy and Cytotec Medical Reason for Induction: Other (intrauterine growth restriction ) Vaginal Delivery Information Procedure Performed: Vacuum Assisted Vaginal Delivery Station at time of placement: +3 Number of vacuum pulls: 1 Number of vacuum pop offs: 0 Surgeon/Practitioner: Betsy Humphries Date of Procedure: 09/15/24 Pre-Procedure Diagnosis: IUGR at 39 weeks Post-Procedure Diagnosis: IUGR at 39 weeks Type of anesthesia: Epidural Estimated Blood Loss: 200cc Time of Delivery: 04:22 Findings Description of procedure: Details of delivery: This is a\ 23 year old woman who was admitted to labor and delivery for IOL for IUGR. The decision was made to perform a vacuum extraction due to recurrent deep variable decelerations after 2 hours of pushing. The risk benefits and alternatives of the procedure were discussed with the patient and verbal consent was obtained. The infant was noted to be at a +3 station, the cervix was completely dilated. The 's head was noted to be in the right occiput anterior presentation. The vacuum was placed in the correct placement in front of the posterior fontanelle. This was confirmed digitally. With the patient's next contraction, the vacuum was inflated and a gentle downward pressure was used to assist with bringing the baby's head to a +3 station. With 1 pull and 0 pop offs. The head was delivered atraumatically. A nuchal cord was noted. And reduced without difficulty. The anterior shoulder followed by the posterior shoulder were delivered without difficulty. The infant was handed off to the patient's chest. The infant was found to be vigorous and crying and moving of all 4 extremities. The mouth and nares were bulb suctioned. After 60 second delay the cord was clamped and cut and the infant was handed off to the awaiting nurses for routine assessment. The placenta was delivered with gentle traction and uterine massage. Inspection of the vagina cervix and perineum was performed. There were no lacerations to the vagina or to the cervix. The peritoneum was found to have a 2nd degree perineal laceration. The perineal laceration was closed using a 2-0 Vicryl in the usual sterile fashion. The patient tolerated the procedure well sponge lap and needle counts were correct x2 and she is now recovering in stable condition. 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
[2024-09-15] MEDS: Ondansetron 4 MG/2 ML Vial IV (04:54)
[2024-09-15] MEDS: Acetaminophen 500 MG Tablet PO (04:54)
--- NOTE | 2024-09-15 04:54 | DCINST_ITS ---
Discharge Instructions Diet Discharge Diet: No restrictions DC O2, CPAP, BIPAP needs Home O2 Discharge instructions: No Dressing / Incision Discharge Activity: Return to Normal Activity, May Not Drive (while taking narcotic pain medications.) and May Shower May resume sexual activity in: 4-6 weeks Dressing / Incision Call your doctor if your incision/area has: Continuous Slow Oozing, Sudden Increased Bleeding, Increased Pain/ Swelling, Increased Redness and Foul Smelling Discharge Follow Up Care Please Follow Up With: Betsy Humphries DO When: Call [phone] to make an appointment with your doctor in 6 weeks. If you had elevated blood pressure or 4th degree laceration, you will need to be seen in 2 weeks. Test Results: Test results from this visit will be discussed in further detail at your follow- up appointment, if applicable. Discharge Plan Admission Admit Date/Time: 09/13/24 19:30 Attending Provider: Betsy Humphries Primary Care Provider: Twan Reddy Discharge Orders/Prescriptions Prescriptions: No Action loratadine [Claritin] 10 mg tablet 10 mg PO PRN PNV cmb#[id number]-ferrous fumarate-FA [] 28 mg iron- 800 mcg tablet 1 tab PO DAILY montelukast [Singulair] 10 mg tablet 10 mg PO QHS magnesium 200 mg tablet 200 mg PO QHS Referrals / Follow Up: Twan Reddy MD [Primary Care Provider] -
[2024-09-15] MEDS: Acetaminophen 500 MG Tablet 1000 MG PO ×2 (13:45→20:46)
[2024-09-15] MEDS: Ibuprofen 600 MG Tablet PO ×2 (14:55→20:56)
[2024-09-16 01:39] VITALS: BP 105/62; PULSE 64; RESP 16; TEMP 36.6; O2SAT 98
[2024-09-16] MEDS: Ibuprofen 600 MG Tablet PO (05:53)
[2024-09-16] MEDS: Acetaminophen 500 MG Tablet 1000 MG PO (05:53)
[2024-09-16 07:53] VITALS: BP 102/63; PULSE 51; RESP 16; TEMP 36.3
--- NOTE | 2024-09-16 08:32 | PCM.PN.OB ---
Subjective Subjective Patient doing well without complaints. Tolerating PO. Ambulating and voiding without difficulty. Feeding well. Denies chest pain, shortness of breath, calf pain/swelling, fevers, chills, lightheadedness. Objective Data Objective Data Vital Signs: Vital Signs Temp Pulse Resp BP Pulse Ox O2 Del Method 97.3 F L 51 L 16 102/63 98 Room Air 09/16/24 07:53 09/16/24 07:53 09/16/24 07:53 09/16/24 07:53 09/16/24 01:39 09/16/24 07:53 Oxygen Delivery Method Room Air Weight: 226 lb Body Mass Index (BMI) 35.4 Intake & Output: Intake and Output for Last 24 Hours 09/14/24 09/15/24 09/16/24 23:59 23:59 23:59 Intake Total 4653.62 / 4653.62 1403.35 / 1403.35 Output Total 1250 / 1250 1750 / 1750 Balance 3403.62 / 3403.62 -346.65 / -346.65 Lab / Micro Data 09/13/24 21:14 ROS Constitutional Constitutional: Denies chills, fatigue, fever(s), poor appetite or weakness Eyes Eyes: Denies blurry vision, change in vision, seeing flashes or spots in vision ENT HEENT: Denies dizziness, headache(s), loss taste/smell or sore throat Cardiovascular Cardiovascular: Denies chest pain, dizziness, dyspnea, irregular heart rhythm, palpitations or rapid heart rate Respiratory/Chest Respiratory/Chest: Denies chest tightness, cough, dyspnea or breast pain Gastrointestinal Gastrointestinal: Denies abdominal pain, constipation or vomiting Genitourinary Genitourinary: Denies dysuria or flank pain Musculoskeletal Musculoskeletal: Denies difficulty walking, joint pain, limited range of motion or numbness Neurologic Neurologic: Denies abnormal movements, abnormal speech, dizziness, numbness, seizure-like activity or syncope Psychiatric Psychiatric: Denies anxiety, behavioral changes, change in appetite, confusion, depression or suicidal thoughts Physical Exam Const alert, oriented x3 and no apparent distress General Appearance: cooperative and comfortable Resp normal respiratory effort Cardio regular rate GI normal to inspection, nondistended, normoactive bowel sounds GI Narrative: uterus is firm below umbilicus Palpation: soft Back/Spine no CVA tenderness and thoraco-lumbar ROM normal Extremity normal to inspection, no clubbing, cyanosis or edema, no calf tenderness and no pedal edema Psych mental status grossly normal, thought process normal, cooperative, affect normal, speech normal, activity/motor behavior normal, denies homicidal ideation and denies suicidal ideation Assessment & Plan (1) Vaginal delivery: COMMENT: vacuum assisted - JV. 3000th baby! PLAN: Plan s/p PPD # 1 1. routine post delivery care 2. breast feeding- support given 3. rh positive 4. rubella immune 5. dc to home today
--- NOTE | 2024-09-16 13:07 | CASEMGMT ---
Social Work Assessment Labor and Delivery Unit Patient Address:[address] [place], [place] [id number] Phone number: [phone] Date of Referral: 09/13/24 Time of Referral:? 2029 Referred By: Pham Otoole Date of Intervention: 09/14/24?? Time of Intervention:? 914 Reason for Referral:? father has history of ETOH Sw completed chart review and acknowledges social work consult due to alcoholism in family. Sw presented to bedside and introduced self to mother of baby (MOB- Jennifer) and father of baby (FOB- Jatinder). Sw explained reason for sw involvement and completed psychosocial assessment. History obtained from: medical records, MOB and FOB Household composition: Currently residing in the family home is MOB, FOB and baby when ready for discharge. Parents deny any problems with home, stating that it is safe and secure. Patient's parent/guardian status:? ?JUAN states that she and FONaeem have been together for 6 years after meeting in high school. Clarita baby is the first baby for both parents. No concerns regarding domestic violence or intimate partner violence. Medical History: ?JUAN is 23 year old female who is 1, para 0- now 1 following labor and delivery of . JUAN received routine care during with [place]. JUAN presented to hospital for induction of labor due to intrauterine growth restriction on 09/13/24. Baby boy, named Akin Cavazos, was born weighing 6lb 7oz with apgars of 8 and 9 at one and five minutes of life, respectfully. JUAN is breast feeding and baby will be followed by Dr. Quinn for pediatrics. Educational Status:? Both parents graduated from high school. No problems with reading, learning or comprehension Financial Status: Both parents are gainfully employed outside of the home. 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 FONaeem is employed at [employer]. Supplies: All necessary baby supplies obtained, including: car seat, safe sleep space, clothes, diapers and wipes. Childcare/Caregiver(s):? JUAN states that she will be the primary caregiver along with FOB and maternal grandma when both parents are at work. Transportation:?? Both parents have their drivers license and reliable means of transportation. Programs/Agencies Involved: Parents are not connected to any community resources that assist them financially. Children Services/Legal Issues:??? No history of children services involvement, no issues or concerns warranting referral to be made at this time. Behavioral Health Issues: ??Mental Health History: Parents deny any mental health history or diagnoses. ??? Substance Use History:?Parents deny substance use prior to and during . ? Family History:?JUAN reports that her father has history of alcoholism, however he went through treatment and has been sober now for quite a while. Sw educated parents on being aware of their genetic disposition and to use healthy and safe coping mechanisms opposed to seeking comfort from drugs or alcohol. Parents express understanding. ? Drug Screens: No drug screens observed while completing chart review. Family/Social Stressors:? Parents deny any stressors, issues or concerns at this time. Support Systems: MOB states that both sets of grandparents are supportive along with FOB. Depression/Shaken Baby/Safe Sleeping: Sw educated parents on signs and symptoms of baby blues and depression and anxiety. FOB states that he would be able to recognize if MOB were struggling with her mental health and would know how to help and support her. MOB states that she is doing well thus far after delivery, although she is tired. Sw educated parents on ABCs of safe sleep and shaken baby prevention. Both parents express understanding. ASSESSMENT:? MOB and baby admitted following labor and delivery of . Both parents present and active in completion of psychosocial assessment. Parents state they are tired following a long delivery. MOB made and maintained eye contact although she was visibly tired. Baby observed to be asleep in bedside bassinet. MOB states she is aware of mental health symptoms to be mindful of going into this period. FOB attentive to MOB and also participated in answering questions/ conversation. Parents have obtained all necessary baby supplies and have natural supports in place. PLAN:?? No other services requested or indicated. MOB and baby to be discharged when medically ready. Parents were provided literature regarding: signs and symptoms of baby blues and mood and anxiety disorders, Help Me Grow, shaken baby prevention, ABCs of safe sleep and a list of county resources that are available for them should any needs present themselves. Lillian Carrizales, STEM MOUNTER, DIRECTOR [facility]
== END 2024-09-16 13:15 | disposition home or self-care (01) | DRG 807 ==
LOC: WPOUT 19:30 → WP 20:20
PROVIDERS: Advanced Practice Midwife; Admitting Provider Obstetrics & Gynecology; PCP Family Medicine; Referring Provider Obstetrics & Gynecology; Visit Provider Obstetrics & Gynecology
DX: O36.5930 Maternal care for other known or suspected poor fetal growth, third trimester, not applicable or unspecified (principal); Z37.0 Single live birth; J45.909 Unspecified asthma, uncomplicated; O99.214 Obesity complicating childbirth; O99.52 Diseases of the respiratory system complicating childbirth; O36.8130 Decreased fetal movements, third trimester, not applicable or unspecified; O76 Abnormality in fetal heart rate and rhythm complicating labor and delivery; O69.81X0 Labor and delivery complicated by cord around neck, without compression, not applicable or unspecified; O70.1 Second degree perineal laceration during delivery; Z3A.38 38 weeks gestation of pregnancy; Z88.0 Allergy status to penicillin; Z88.1 Allergy status to other antibiotic agents
CPT/HCPCS: 59025; 59050; 85025; 86780; 86850; 86900; 86901; 99221; A4216; G0378; J2405